=== PATIENT | female | born 1955 | race Caucasian/White ===

== ENCOUNTER → 2018-08-20 10:01 | Outpatient (CLI) | payer MEDICARE, MEDICAID, SELFPAY ==
--- NOTE | 2018-08-20 10:08 | MM_ITS ---
MM Dig screening mamm BI w/CAD CAD Screening COMPARISON: Digital mammograms with CAD 10/09/2016 and 01/31/2016 INDICATION: There is no personal or family history of breast cancer TECHNIQUE: Standard CC and MLO images were obtained. R2 CAD reviewed. FINDINGS: Moderate diffuse fiber glandular densities are seen in both breast again slightly more prominent right breast than left. There are scattered benign-appearing calcifications in each breast and there is minimal arterial calcification right breast. There is a mole marker left breast. There is no suspicious lesion and there are no suspicious microcalcifications. IMPRESSION: Moderate breast density with no suspicious lesion seen BI-RADS Category: 2 Benign Finding(s) RECOMMENDED FOLLOW-UP: 1YR - 1 YEAR FOLLOW-UP (A letter has been sent to the patient regarding results of the study.)
== END ==
PROVIDERS: PCP Internal Medicine Adolescent Medicine; Visit Provider Internal Medicine Adolescent Medicine
DX: Z12.31 Encounter for screening mammogram for malignant neoplasm of breast (principal)
CPT/HCPCS: 77067

== ENCOUNTER → 2019-04-22 12:19 | Outpatient (CLI) | payer MEDICARE, MEDICAID, SELFPAY ==
[2019-04-22 15:19] LABS: Anion Gap 12.5 mEq/L (5-15); Blood Urea Nitrogen 11 mg/dL (7-18); Calcium 9.4 mg/dL (8.5-10.1); Carbon Dioxide 27 mmol/L (21.0-32.0); Chloride 96 mmol/L (98-107); Creatinine,Serum 0.71 mg/dL (0.55-1.02); Estimated Glomerular Filt Rate 83 ml/min (>60); GFR (African American) 101 ML/MIN (>60); Glucose 189 mg/dL (74-106); Potassium 4.5 mmoL/L (3.5-5.1); Sodium 131 mmol/L (136-145)
== END ==
PROVIDERS: Visit Provider Physician Assistant
DX: I10 Essential (primary) hypertension (principal)
CPT/HCPCS: 36415; 80048

== ENCOUNTER → 2019-04-24 12:19 | Outpatient (CLI) | payer MEDICARE, MEDICAID, SELFPAY ==
--- NOTE | 2019-04-24 12:28 | XR_ITS ---
PROCEDURE: XR CHEST 2V CLINICAL HISTORY: abn cxr COMPARISON: CXR CHEST(2 VIEWS-NOT PORTABLE) from 09/11/2014 CXR CHEST(2 VIEWS-NOT PORTABLE) from 12/01/2014 CXR CHEST(2 VIEWS-NOT PORTABLE) from 01/02/2017 FINDINGS: The cardiomediastinal silhouette and pulmonary vascularity are within normal limits. No lobar consolidation or collapse is evident. There is a history of an abnormal chest x-ray at an outside institution. That exam is not available for review. No discrete nodules evident on today's exam. No change compared to multiple previous exams. We would be glad to comparison most recent outside film if it is made available. There is ankylosis of the thoracic spine. IMPRESSION: Negative chest, no discrete nodule apparent Dictated by: Jules Lynch MD 04/24/2019 13:38 Signed by: <Electronically signed by Julse Lynch MD in [place]> 04/24/2019 13:38
== END ==
PROVIDERS: PCP Internal Medicine Adolescent Medicine; Visit Provider Internal Medicine Adolescent Medicine
DX: R93.89 Abnormal findings on diagnostic imaging of other specified body structures (principal)
CPT/HCPCS: 71046

== ENCOUNTER → 2019-05-27 10:44 | Outpatient (CLI) | payer MEDICARE, MEDICAID, SELFPAY ==
--- NOTE | 2019-05-27 10:45 | CA_ITS ---
APPROVED REPORT EXAM: Comprehensive 2D, Doppler, and color-flow Echocardiogram Alligator Hunter: Ashley Tavares RT(R) Ht: 5 ft 5 in Wt: 170lbs BSA: 1.85 BP: 175/79 mmHg Indications: Shortness of Breath, Hyperlipidemia, Hypertension/HDD 2D Dimensions LVOT 1.90 cm (M/F) 1.5-2.5 M-Mode Dimensions RVDd 1.80 cm (0.9-2.6) LA Diam 4.00 cm (1.9-4.0) LVDd 4.40 cm (3.5-5.7) Ao Diam 2.30 cm (2.0-3.7) LVDs 2.80 cm (3.5-5.7) AV Cusp 1.50 cm (1.5-2.6) IVSd 0.70 cm (0.6-1.1) PWd 0.80 cm (0.6-1.1) EF (Teich) 66.20% FS 36.40% EDV (Teich) 87.70 mL ESV (Teich) 29.60 mL LV Diastology E/A Ratio 1.30 MED E' 7.70 (< 7 cm/sec) E'/MED E' Ratio 13.50 (>14) LAT E' 12.30 (<10 cm/sec) E/LAT E' Ratio 8.50 (>14) Mitral Valve MV E Max Fabrice. 104.00 (40-130 cm/s) MV A Velocity 80.50 (40-130 cm/s) E/A Ratio 1.30 Tricuspid Valve TR P. Velocity 265.00 cm/s RAP Estimate 15.00 mmHg RVSP 43.00 mmHg Left Ventricle Left atrium is mildly enlarged, left ventricle is normal size, there is no concentric left ventricular hypertrophy, visually estimated ejection fraction 55% with no regional wall motion abnormality. Right Ventricle Right atrium and right ventricle are mildly enlarged with normal contractility. Aortic Valve Aortic valve is minimally thickened and fibrosed. There is no aortic stenosis aortic insufficiency. Mitral Valve Mitral valve is grossly normal, there is mild mitral regurgitation. Tricuspid Valve Tricuspid valve is grossly normal, there is mild tricuspid regurgitation. Likely right ventricular systolic pressure is 42 mmHg consistent with moderately elevated right ventricular systolic pressure. Inferior vena cava is normal size with normal inspiratory collapse. Pulmonic Valve Pulmonic valve is poorly visualized. Great Vessels Aortic root is normal size. Pericardium No significant pericardial effusion noted. Conclusion 1. Mild biatrial enlargement, normal left ventricular size, visually estimated ejection fraction 55% with no regional wall motion abnormality, diastolic parameters are within normal range. 2. Mildly enlarged right ventricle with normal contractility. 3. Mild mitral and tricuspid regurgitation. Calculated right ventricular systolic pressure is 42 mmHg consistent with moderately elevated right ventricular systolic pressure, inferior vena cava is normal size with normal respiratory collapse. 4. No significant pericardial effusion noted. Electronically signed by : Elroy Ryder, 05/29/2019 13:34:11
== END ==
PROVIDERS: PCP Internal Medicine Adolescent Medicine; Visit Provider Internal Medicine Cardiovascular Disease
DX: F41.9 Anxiety disorder, unspecified (principal); I10 Essential (primary) hypertension; R06.09 Other forms of dyspnea
CPT/HCPCS: 93306

== ENCOUNTER → 2019-09-19 10:10 | Outpatient (CLI) | payer MEDICARE, OTHER, SELFPAY ==
[2019-09-19 10:42] LABS: Basophils % 0.4 % (0.1-2.0); Eosinophils # 0.2 K/mm3 (0.0-0.4); Eosinophils % 4.5 % (0.1-12.0); Hematocrit 37.7 % (37.0-47.0); Hemoglobin 12.3 g/dL (12.2-16.2); Lymphocytes % 40.5 % (10-50); Mean Corpuscular HGB Conc 32.6 g/dL (31.8-35.4); Mean Corpuscular Hemoglobin 29.9 pg (27.0-31.2); Mean Corpuscular Volume 91.7 fl (81-99); Mean Platelet Volume 7.5 fl (7.4-10.4); Monocytes # 0.3 K/mm3 (0.1-1.0); Monocytes % 5.8 % (1.7-9.3); Neutrophils # 2.4 K/mm3 (1.8-7.8); Neutrophils % 48.8 % (37.0-80.0); Platelet Count 411 K/mm3 (142-424); Red Blood Count 4.11 M/mm3 (4.20-5.40); Red Cell Distribution Width 12.7 % (11.5-17.5); White Blood Count 4.9 K/mm3 (4.8-10.8)
[2019-09-19 13:18] LABS: Hemoglobin A1C 7.3 % (0.0-7.0)
[2019-09-19 13:28] LABS: Alanine Aminotransferase 21 U/L (12-78); Albumin Level 3.5 gm/dL (3.4-5.0); Alkaline Phosphatase 96 U/L (46-116); Aspartate Amino Transferase 16 U/L (15-37); Bilirubin,Total 0.3 mg/dL (0.2-1.0); Blood Urea Nitrogen 15 mg/dL (7-18); Calcium 8.6 mg/dL (8.5-10.1); Carbon Dioxide 28 mmol/L (21.0-32.0); Chloride 104 mmol/L (98-107); Chol/HDL Ratio 3.6 (1-3.5); Cholesterol 218 mg/dL (140-200); Estimated Glomerular Filt Rate 73 ml/min (>60); GFR (African American) 88 ML/MIN (>60); Globulin 3.6 gm/dl (1.3-3.2); Glucose 154 mg/dL (74-106); HDL Cholesterol 60 mg/dL (29-89); LDL Cholesterol 133 mg/dL (0-130); Sodium 139 mmol/L (136-145); Total Protein,Serum 7.1 gm/dL (6.4-8.2); Triglycerides 127 mg/dL (30-200); VLDL Cholesterol 25 mg/dL (0-40)
[2019-09-23 10:45] LABS: Vitamin D 25 Hydroxy 28.8 ng/mL (30.0-100.0)
== END ==
PROVIDERS: Visit Provider Internal Medicine Adolescent Medicine
DX: E11.9 Type 2 diabetes mellitus without complications (principal); E55.9 Vitamin D deficiency, unspecified; E78.5 Hyperlipidemia, unspecified; Z79.84 Long term (current) use of oral hypoglycemic drugs
CPT/HCPCS: 36415; 80053; 80061; 82652; 83036; 85025

== ENCOUNTER → 2020-02-02 09:57 | Outpatient (CLI) | payer MEDICARE, OTHER, SELFPAY ==
[2020-02-02 10:56] LABS: Basophils % 0.5 % (0.1-2.0); Eosinophils # 0.2 K/mm3 (0.0-0.4); Eosinophils % 4.4 % (0.1-12.0); Hematocrit 39.9 % (37.0-47.0); Hemoglobin 12.9 g/dL (12.2-16.2); Lymphocytes # 2.4 K/mm3 (0.7-4.5); Lymphocytes % 46.1 % (10-50); Mean Corpuscular HGB Conc 32.4 g/dL (31.8-35.4); Mean Corpuscular Hemoglobin 29.8 pg (27.0-31.2); Mean Corpuscular Volume 92.1 fl (81-99); Mean Platelet Volume 7.4 fl (7.4-10.4); Monocytes # 0.3 K/mm3 (0.1-1.0); Monocytes % 4.9 % (1.7-9.3); Neutrophils # 2.3 K/mm3 (1.8-7.8); Neutrophils % 44.1 % (37.0-80.0); Platelet Count 410 K/mm3 (142-424); Red Blood Count 4.34 M/mm3 (4.20-5.40); Red Cell Distribution Width 13.2 % (11.5-17.5); White Blood Count 5.2 K/mm3 (4.8-10.8)
[2020-02-02 11:33] LABS: Alanine Aminotransferase 24 U/L (12-78); Albumin Level 4.2 g/dl (3.5-5.0); Albumin/Globulin Ratio 1.2 (1.1-1.8); Alkaline Phosphatase 106 U/L (38-126); Anion Gap 11.4 mEq/L (5-15); Aspartate Amino Transferase 27 U/L (14-36); Bilirubin,Total 0.4 mg/dl (0.2-1.3); Blood Urea Nitrogen 8 mg/dl (7-17); Calcium 9.7 mg/dl (8.4-10.2); Carbon Dioxide 30 mmol/L (22.0-30.0); Chloride 99 mmol/L (98-107); Chol/HDL Ratio 3.1 (1-3.5); Cholesterol 216 mg/dl (140-200); Estimated Glomerular Filt Rate 85 ml/min (>60); GFR (African American) 103 ML/MIN (>60); Globulin 3.4 g/dL (1.3-3.2); Glucose 174 mg/dl (74-100); HDL Cholesterol 69 mg/dl (40-60); Potassium 4.4 mmoL/L (3.5-5.1); Sodium 136 mmol/L (136-145); Total Protein,Serum 7.6 g/dl (6.3-8.2); Triglycerides 138 mg/dl (30-150); VLDL Cholesterol 28 mg/dL (0-40)
[2020-02-02 11:43] LABS: Hemoglobin A1C 7.8 % (4.0-6.0)
[2020-02-02 11:44] LABS: Direct LDL Cholesterol 148.23 mg/dL (100-129)
[2020-02-03 09:41] LABS: Vitamin D 25 Hydroxy 31.8 ng/mL (30.0-100.0)
== END ==
PROVIDERS: Visit Provider Internal Medicine Adolescent Medicine
DX: E78.5 Hyperlipidemia, unspecified (principal); E11.9 Type 2 diabetes mellitus without complications; E55.9 Vitamin D deficiency, unspecified
CPT/HCPCS: 36415; 80053; 80061; 82652; 83036; 85025

== ENCOUNTER → 2020-12-17 11:53 | Outpatient (CLI) | payer MEDICARE, SELFPAY ==
[2020-12-17 12:21] LABS: Adenovirus,PCR Not Detected (NotDetected); Bordetella Pertussis Not Detected (NotDetected); Chlamydophila Pneumoniae, PCR Not Detected (NotDetected); Coronavirus 19, PCR Not Detected (NotDetected); Coronavirus 229E Not Detected (NotDetected); Coronavirus NL63 Not Detected (NotDetected); Coronavirus OC43 Not Detected (NotDetected); Coronovirus HKU1,PCR Not Detected (NotDetected); Human Metapneumovirus Not Detected (NotDetected); Influenza A, PCR Not Detected (NotDetected); Influenza AH1, 2009 Not Detected (NotDetected); Influenza AH1, PCR Not Detected (NotDetected); Influenza AH3,PCR Not Detected (NotDetected); Influenza B, PCR Not Detected (NotDetected); Mycoplasma Pneumoniae, PCR Not Detected (NotDetected); Parainfluenza 1, PCR Not Detected (NotDetected); Parainfluenza 2, PCR Not Detected (NotDetected); Parainfluenza 3, PCR Not Detected (NotDetected); Parainfluenza 4, PCR Not Detected (NotDetected); Respiratory Syncytial Virus Not Detected (NotDetected)
[2020-12-17 17:00] LABS: Rhinovirus/Enterovirus Detected (NotDetected)
== END ==
PROVIDERS: PCP Internal Medicine Adolescent Medicine; Visit Provider Internal Medicine Adolescent Medicine
DX: Z20.822 Contact with and (suspected) exposure to COVID-19 (principal); J06.9 Acute upper respiratory infection, unspecified; A08.11 Acute gastroenteropathy due to Norwalk agent
CPT/HCPCS: 87581; 87633; 87798

== ENCOUNTER → 2021-01-20 08:18 | Outpatient (CLI) | payer MEDICARE, OTHER, SELFPAY ==
--- NOTE | 2021-01-20 08:23 | MM_ITS ---
PROCEDURE INFORMATION: Exam: MG Screening 3D Mammography Exam date and time: 01/20/2021 8:23 AM Age: 65 years old Clinical indication: Encounter for screening mammogram for malignant neoplasm of breast TECHNIQUE: Imaging protocol: Screening tomosynthesis and 2D mammography including computer-aided detection (CAD) when performed. COMPARISON: 1. MG SCBI MM Dig screening mamm BI w/CAD 08/20/2018 10:13 AM 2. MG DMDBAV DIG MAMM-DX VENKATESH W/AVWS W/CAD 10/09/2016 1:07 PM 3. MG DMDBAV DIG MAMM-DX VENKATESH W ADD VIEWS 02/20/2016 2:35 PM 4. MG DMSB DIG MAMM-SCREEN VENKATESH 01/31/2016 10:09 AM FINDINGS: MAMMOGRAPHY: Breast composition: The breasts are heterogeneously dense, which may obscure small masses. Mass: No new suspicious masses. Architectural distortion: No suspicious distortion. Calcifications: No suspicious calcifications. Asymmetric density: None. Skin thickening: None. Axillary adenopathy: None. IMPRESSION: No mammographic evidence of malignancy. Annual screening is recommended unless otherwise clinically indicated. ASSESSMENT: BI-RADS Category 1: Negative
== END ==
PROVIDERS: PCP Internal Medicine Adolescent Medicine; Visit Provider Internal Medicine Adolescent Medicine
DX: Z12.31 Encounter for screening mammogram for malignant neoplasm of breast (principal)
CPT/HCPCS: 77063; 77067

== ENCOUNTER → 2021-08-12 12:03 | Outpatient (CLI) | payer MEDICARE, OTHER, SELFPAY ==
[2021-08-12 12:54] LABS: Basophils % 0.4 % (0.1-2.0); Eosinophils # 0.2 K/mm3 (0.0-0.4); Eosinophils % 4.3 % (0.1-12.0); Hematocrit 37.9 % (37.0-47.0); Hemoglobin 12.9 g/dL (12.2-16.2); Lymphocytes # 2.3 K/mm3 (0.7-4.5); Lymphocytes % 42.6 % (10-50); Mean Corpuscular Hemoglobin 30.6 pg (27.0-31.2); Mean Corpuscular Volume 89.8 fl (81-99); Mean Platelet Volume 8.6 fl (7.4-10.4); Monocytes # 0.3 K/mm3 (0.1-1.0); Monocytes % 5.1 % (1.7-9.3); Neutrophils # 2.6 K/mm3 (1.8-7.8); Neutrophils % 47.6 % (37.0-80.0); Platelet Count 391 K/mm3 (142-424); Red Blood Count 4.22 M/mm3 (4.20-5.40); Red Cell Distribution Width 12.9 % (11.5-17.5); White Blood Count 5.5 K/mm3 (4.8-10.8)
[2021-08-12 14:34] LABS: Alanine Aminotransferase 25 U/L (12-78); Albumin Level 4.2 g/dl (3.5-5.0); Albumin/Globulin Ratio 1.4 (1.1-1.8); Alkaline Phosphatase 102 U/L (38-126); Anion Gap 12.6 mEq/L (5-15); Aspartate Amino Transferase 30 U/L (14-36); Bilirubin,Total 0.5 mg/dl (0.2-1.3); Blood Urea Nitrogen 12 mg/dl (7-17); Calcium 9.4 mg/dl (8.4-10.2); Carbon Dioxide 29 mmol/L (22.0-30.0); Chloride 99 mmol/L (98-107); Chol/HDL Ratio 2.7 (1-3.5); Cholesterol 182 mg/dl (140-200); Estimated Glomerular Filt Rate 101 ml/min (>60); GFR (African American) 122 ML/MIN (>60); Globulin 3.1 g/dL (1.3-3.2); Glucose 164 mg/dl (74-100); HDL Cholesterol 67 mg/dl (40-60); Potassium 4.6 mmoL/L (3.5-5.1); Sodium 136 mmol/L (136-145); Total Protein,Serum 7.3 g/dl (6.3-8.2); Triglycerides 102 mg/dl (30-150); VLDL Cholesterol 20 mg/dL (0-40)
[2021-08-12 14:44] LABS: Direct LDL Cholesterol 101.41 mg/dL (100-129)
[2021-08-12 14:50] LABS: 25-OH Vitamin D, Total 40.8 ng/mL (30-100)
[2021-08-12 15:25] LABS: Vitamin B12 346 pg/mL (239-931)
[2021-08-12 15:33] LABS: Hemoglobin A1C 8.1 % (4.0-6.0)
== END ==
PROVIDERS: Visit Provider Internal Medicine Adolescent Medicine
DX: E78.5 Hyperlipidemia, unspecified (principal); E11.9 Type 2 diabetes mellitus without complications; R53.81 Other malaise; E66.3 Overweight; Z68.27 Body mass index [BMI] 27.0-27.9, adult
CPT/HCPCS: 36415; 80053; 80061; 82306; 82607; 83036; 85025

== ENCOUNTER 2022-02-03 16:07 | Emergency (ER) | payer MEDICARE, OTHER, SELFPAY ==
[2022-02-03 17:00] VITALS: BP 141/76; PULSE 86; RESP 19; TEMP 37.8; O2SAT 98; BMI 29.1
--- NOTE | 2022-02-03 17:14 | HMH.EDUTC ---
[facility] [place] Impression: Viral upper respiratory illness Disposition: Home, Self-Care Condition on Discharge: Good Instructions: DI for Fever (Symptom) -- Adult, DI for Viral Syndrome, DI for COVID-19 (Suspected or Confirmed ) Additional Instructions: *Monitor Temp, Over the counter Motrin or Tylenol as directed/as needed Tylenol every 4 hours and Motrin every 6 hours (as long as your family doctor has told you that you can take it) for fever or pain. and straight to ER if unable to lower temp less than 101.0 after medication given *Warm salt water gargles may help to soothe the throat *Throat Lozenges *Warm fluids like tea with honey may help to soothe the throat *Sleep elevated *Humidifier/Vaporizer Follow up IMMEDIATELY for new or worsening symptoms or no Noticeable improvement over the next 48-72 hours. 911 for difficulty breathing or swallowing You were tested for today for COVID19 your test result should be back in the next 24-48 hours, your results will be available on the [facility] portal you can view your results there Make sure to take your Vitamins Vit. C Vit D and Zinc if you can take them Referrals: Nathan Perez MD [Primary Care Provider] - As needed Time of Disposition: 17:32 Medical Decision Making - Juan Carlos Inquiry Pt receiving controlled substance: No Juan Carlos was queried for this patient: No Vital Signs: 02/03/22 17:00 Temperature 100.1 F H Temperature Source Oral Pulse Rate [Right Brachial] 86 Respiratory Rate 19 Blood Pressure [Right Arm] 141/76 H Blood Pressure Mean [Right Arm] 97 Blood Pressure Source [Right Arm] Automatic Cuff Blood Pressure Position [Right Arm] Sitting 02 Sat by Pulse Oximetry 98 Oxygen Delivery Method Room Air Orders (Tests/Meds): ORDERS Category Date Time Status Full Resp Panel w/COVID ([facility]) Routine Lab 02/03/22 16:54 [place] [facility] [place] - General Stated complaint: sore throat,fever,body aches Time Seen by Provider: 02/03/22 17:14 Mode of Arrival: Ambulatory Source of Information: Patient Limitations: No Limitations Description of Symptoms (Recalled from Triage Doc. by RN): PATIENT C/O RUNNY NOSE, BODY ACHES, FEVER AND DRY COUGH X 3 DAYS HEENT Symptoms (Recalled from RN notes): Yes Resp Symptoms (Recalled from RN notes): Yes Skin Symptoms (Recalled from RN notes): No MS Symptoms (Recalled from RN notes): No Functional Status (Recalled from RN notes): WNL - History of Present Illness Provider Complaint: Patient states that she has been having bodyaches, chills, low grade fever and nasal congestion for about 3 days State that grandchild was recenty sick with similar symptoms States that she was worried that it may be COVID and wanted to come in and get tested - Related Data Home Medications Medication Instructions Recorded Confirmed brimonidine 0.2 %-timolol 0.5 % 1 drp OPHTHALMIC BID 09/16/18 02/16/21 eye drops aspirin 81 mg tablet,delayed 81 mg PO DAILY 04/16/19 02/16/21 release buspirone 10 mg tablet 5 mg PO BID 90 Days #90 tab 04/16/19 02/16/21 famotidine 20 mg tablet 20 mg PO BID 04/16/19 02/16/21 metformin 1,000 mg tablet 1,500 mg PO DAILY tab 02/18/20 02/16/21 dapagliflozin 10 mg tablet 10 mg PO DAILY tab 02/16/21 02/16/21 rosuvastatin 20 mg tablet 20 mg PO DAILY tab 02/16/21 02/16/21 Previous Rx's Medication Instructions Recorded lisinopril 20 mg tablet 20 mg PO DAILY #30 tab 07/16/19 propranolol 60 mg capsule,24 See Rx Instructions .ROUTE 05/02/21 hr,extended release .COMPLEX #90 cap furosemide 20 mg tablet See Rx Instructions .ROUTE 11/30/21 .COMPLEX #30 tab Allergies Allergy/AdvReac Type Severity Reaction Status Date / Time codeine [CODEINE] Allergy Unknown Verified 02/16/21 11:10 Iodinated Contrast Media Allergy Unknown Verified 02/16/21 11:10 [IODINATED CONTRAST MEDIA - ORAL AND] Penicillins [PENICILLINS] Allergy Unknown Verified 02/16/21 11:10 shellfish derived Allergy Un
[2022-02-03 17:17] LABS: Adenovirus,PCR Not Detected (NotDetected); Bordetella Pertussis Not Detected (NotDetected); Chlamydophila Pneumoniae, PCR Not Detected (NotDetected); Coronavirus 19, PCR Not Detected (NotDetected); Coronavirus 229E Not Detected (NotDetected); Coronavirus NL63 Not Detected (NotDetected); Coronavirus OC43 Not Detected (NotDetected); Coronovirus HKU1,PCR Not Detected (NotDetected); Human Metapneumovirus Not Detected (NotDetected); Influenza A, PCR Not Detected (NotDetected); Influenza AH1, 2009 Not Detected (NotDetected); Influenza AH1, PCR Not Detected (NotDetected); Influenza AH3,PCR Not Detected (NotDetected); Influenza B, PCR Not Detected (NotDetected); Mycoplasma Pneumoniae, PCR Not Detected (NotDetected); Parainfluenza 1, PCR Not Detected (NotDetected); Parainfluenza 2, PCR Not Detected (NotDetected); Parainfluenza 3, PCR Not Detected (NotDetected); Parainfluenza 4, PCR Not Detected (NotDetected); Respiratory Syncytial Virus Not Detected (NotDetected)
[2022-02-03 17:41] VITALS: BP 141/73; PULSE 86; RESP 19; TEMP 37.8; O2SAT 98
[2022-02-03 21:49] LABS: Rhinovirus/Enterovirus Detected (NotDetected)
== END 2022-02-03 17:47 | disposition home or self-care (01) ==
PROVIDERS: Emergency Provider Nurse Practitioner; PCP Internal Medicine Adolescent Medicine
DX: B34.8 Other viral infections of unspecified site (principal); J02.9 Acute pharyngitis, unspecified; M79.10 Myalgia, unspecified site; R50.9 Fever, unspecified; E78.5 Hyperlipidemia, unspecified; Z20.822 Contact with and (suspected) exposure to COVID-19; I10 Essential (primary) hypertension; E11.9 Type 2 diabetes mellitus without complications; F32.A Depression, unspecified; Z79.82 Long term (current) use of aspirin; Z79.84 Long term (current) use of oral hypoglycemic drugs; Z79.899 Other long term (current) drug therapy; Z88.0 Allergy status to penicillin; Z88.2 Allergy status to sulfonamides; Z88.5 Allergy status to narcotic agent; Z91.041 Radiographic dye allergy status; Z91.013 Allergy to seafood
CPT/HCPCS: 87581; 87632; 87798; 99213; C9803; G0463; U0003; U0005

== ENCOUNTER 2022-04-08 17:49 | Emergency (ER) | payer MEDICARE, OTHER, SELFPAY ==
[2022-04-08 18:21] VITALS: BP 140/85; PULSE 74; RESP 16; TEMP 37; O2SAT 100; BMI 28.3
[2022-04-08 18:31] VITALS: BP 140/85; PULSE 74; RESP 16; TEMP 37
== END 2022-04-08 18:32 | disposition home or self-care (01) ==
PROVIDERS: Emergency Provider Nurse Practitioner; PCP Internal Medicine Adolescent Medicine
DX: Z23 Encounter for immunization (principal)
CPT/HCPCS: 90471

== ENCOUNTER 2022-04-30 18:07 | Emergency (ER) | payer MEDICARE, OTHER, SELFPAY ==
[2022-04-30 19:47] VITALS: BP 158/75; PULSE 75; RESP 16; TEMP 37.6; O2SAT 99; BMI 28.3
[2022-04-30 20:02] LABS: UTC Strep Screen (Rapid) Negative (Negative)
--- NOTE | 2022-04-30 20:05 | EXP.UTC ---
Discharge Plan Disposition Patient Disposition: Home, Self-Care Condition: Good Prescriptions Prescriptions: New benzonatate [benzonatate] 100 mg capsule 100 mg PO TIDP PRN (Reason: Cough) Qty: 30 0RF ondansetron 4 mg Tablet,Disintegrating 4 mg PO Q8H PRN (Reason: Nausea) Qty: 20 0RF No Action buspirone 10 mg tablet 5 mg PO BID 90 Days Qty: 90 metformin 1,000 mg tablet 1,000 mg PO DAILY dorzolamide 2 % drops 1 drp OP famotidine [Pepcid] 20 mg tablet 20 mg PO BID aspirin [Adult Low Dose Aspirin] 81 mg tablet,delayed release (DR/EC) 81 mg PO DAILY lisinopril 20 mg tablet 20 mg PO DAILY Qty: 30 6RF furosemide 20 mg tablet See Rx Instructions .ROUTE .COMPLEX Qty: 30 5RF Dose Instruction: Take 1 tablet by mouth once daily Rx Instructions: Take 1 tablet by mouth once daily propranolol 60 mg capsule,extended release 24 hr See Rx Instructions .ROUTE .COMPLEX Qty: 90 2RF Dose Instruction: Take 1 capsule by mouth once daily Rx Instructions: Take 1 capsule by mouth once daily Referrals Follow up/Referrals: Nathan Perez MD [Primary Care Provider] - See instructions Activity Restrictions/Add. Instructions Additional Instructions/Restrictions: Drink plenty of fluids. Take tylenol or ibuprofen for pain or fever. Take the medications as directed. Follow up with your regular doctor. GO TO THE ER FOR ANY WORSENING SYMPTOMS Quarantine until you know the results of your covid-19 test. Notify your school or workplace of your results and follow their instructions regarding return to work/school. Clinical Impressions Clinical Impression: Acute viral syndrome, Close exposure to COVID-19 virus Stand Alone Forms Stand Alone Forms: Work/School Release Instructions Patient Instructions: Coronavirus Disease 2019, Preventing the Spread of Coronavirus Discharge Instructions Discharge ED Provider: Leonardo Sewell [facility] General Stated complaint: covid test, exposed body aches chills Mode of Arrival: Ambulatory Source of Information: Patient Limitations: No Limitations Time Seen by Provider: 04/30/22 20:05 Description of Symptoms (Recalled from Triage Doc. by RN): pt comes in with complaints of chills and body aches. pt was exposed to covid by graddaughter and daughter. and was also exposed to strep throat by another granddaughter. pt states that her symptoms began today HEENT Symptoms (Recalled from RN notes): No Resp Symptoms (Recalled from RN notes): No Skin Symptoms (Recalled from RN notes): No MS Symptoms (Recalled from RN notes): No Functional Status (Recalled from RN notes): n/a History of Present Illness Provider Complaint: She has felt bad since yesterday. She has body aches, chills, low grade fever. Related Data Home Medications Medication Instructions Recorded Confirmed aspirin 81 mg tablet,delayed 81 mg PO DAILY 04/16/19 03/08/22 release (Adult Low Dose Aspirin) buspirone 10 mg tablet 5 mg PO BID 90 days #90 tabs 04/16/19 03/08/22 famotidine 20 mg tablet (Pepcid) 20 mg PO BID 04/16/19 03/08/22 dorzolamide 2 % eye drops 1 drp ophthalmic (eye) 03/08/22 03/08/22 metformin 1,000 mg tablet 1,000 mg PO DAILY 03/08/22 03/08/22 Previous Rx's Medication Instructions Recorded lisinopril 20 mg tablet 20 mg PO DAILY #30 tabs 07/16/19 furosemide 20 mg tablet See Rx Instructions .Route 11/30/21 .COMPLEX #30 tabs propranolol 60 mg capsule,24 See Rx Instructions .Route 02/13/22 hr,extended release .COMPLEX #90 caps benzonatate 100 mg capsule 100 mg PO TIDP PRN Cough #30 caps 04/30/22 ondansetron 4 mg disintegrating 4 mg PO Q8H PRN Nausea #20 tabs 04/30/22 tablet Allergies Allergy/AdvReac Type Severity Reaction Status Date / Time codeine [CODEINE] Allergy Unknown Verified 04/30/22 19:50 Iodinated Contrast Media Allergy Unknown Verified 04/30/22 19:50 [IODINATED CONTRAST MEDIA - ORAL AND] Pen
[2022-04-30 20:27] VITALS: BP 158/75; PULSE 75; RESP 16; TEMP 37.6
== END 2022-04-30 20:28 | disposition home or self-care (01) ==
PROVIDERS: Emergency Provider Nurse Practitioner Family; PCP Internal Medicine Adolescent Medicine
DX: U07.1 COVID-19 (principal)
CPT/HCPCS: 87880; 99212; C9803; G0463; U0003; U0005

== ENCOUNTER 2023-11-06 15:12 | Outpatient (CLI) | payer MEDICARE, OTHER, SELFPAY ==
--- NOTE | 2023-11-06 15:13 | CA_ITS ---
APPROVED REPORT EXAM: Comprehensive 2D, Doppler, and color-flow Echocardiogram Security Agent: Ashley Tavares RT(R) Ht: 5 ft 5 in Wt: 173lbs BSA: 1.86 BP: 136/64 mmHg Indications: HTN, PHTN, DM 2D Dimensions LVEF (Hendrix's) 62.90 % F: 54 - 74 LV Volume 75.00 mL F: 46 - 106 LV Volume Index 40.3 mL/m2 F: 29 - 61 LA Volume 38.90 mL LA Volume Index 20.91 mL/m2 (M/F) 16-34 EF AP4 57.90 % EF AP2 67.5 % EF BP 62.9 % GL Strain -15.2 % M-Mode Dimensions RVDd 2.55 cm (0.9-2.6) LA Diam 3.41 cm (1.9-4.0) LVDd 4.06 cm (3.5-5.7) LVDs 2.99 cm (3.5-5.7) IVSd 0.84 cm (0.6-1.1) PWd 0.89 cm (0.6-1.1) EF (Teich) 52.10% FS 26.40% EDV (Teich) 72.50 mL ESV (Teich) 34.70 mL LV Diastology E Decel Time 217 (160-240 msec) E/A Ratio 1.4 Mitral Valve MV E Max Fabrice. 95.0 (40-130 cm/s) MV A Velocity 68.0 (40-130 cm/s) E/A Ratio 1.39 MV PHT 63.0 ms Tricuspid Valve TR P. Velocity 274.00 cm/s RAP Estimate 10.00 mmHg RVSP 40.00 mmHg Left Ventricle The left ventricle is normal size. The left ventricular systolic function is normal. The left ventricular ejection fraction is within the normal range. Proximal septal thickening is noted. There is normal LV segmental wall motion. The left ventricular diastolic function is normal. LVEF is 60%. Right Ventricle The right ventricle is normal size. The right ventricular systolic function is normal. Atria The left atrium size is normal. The right atrium size is normal. There is no Doppler evidence of interatrial shunt. Aortic Valve The aortic valve is mildly thickened. There is no aortic valvular stenosis. No aortic regurgitation is present. Mitral Valve The mitral valve is normal in structure. No evidence of mitral valve stenosis. Mild mitral regurgitation. Tricuspid Valve The tricuspid valve leaflets are thin and pliable. Mild tricuspid regurgitation. RVSP is 25-30 mmHg. Pulmonic Valve The pulmonary valve is normal in structure. Trace pulmonic regurgitation. Great Vessels The aortic root is normal in size. The ascending aorta is normal in size. IVC is normal in size and collapses >50% with inspiration. Pericardium There is no pericardial effusion. Other Information Study Quality: Fair Conclusion Normal biventricular systolic function. Mild TR, mild MR. RVSP 25-30 mmHg. Electronically signed by : Hanh Cornelius MD 11/09/2023 22:14:07
== END 2023-11-06 23:59 ==
LOC: RT 15:13
PROVIDERS: PCP Internal Medicine Adolescent Medicine; Visit Provider Internal Medicine
DX: I27.20 Pulmonary hypertension, unspecified (principal); I10 Essential (primary) hypertension; E11.9 Type 2 diabetes mellitus without complications; R60.0 Localized edema; Z79.84 Long term (current) use of oral hypoglycemic drugs
CPT/HCPCS: 93306

== ENCOUNTER 2023-12-04 09:44 | Outpatient (CLI) | payer MEDICARE, OTHER, SELFPAY | END 2023-12-04 23:59 | LOC: LAB.DROPOF 12-05 09:45 | PROVIDERS: PCP Nurse Practitioner Family; Visit Provider Nurse Practitioner Family | DX: Z20.818 Contact with and (suspected) exposure to other bacterial communicable diseases (principal) | CPT/HCPCS: 87070 ==

== ENCOUNTER 2024-05-01 09:48 | Outpatient (CLI) | payer MEDICARE, OTHER, SELFPAY ==
[2024-05-01 18:16] LABS: Adenovirus,PCR Not Detected (NotDetected); Bordetella Pertussis Not Detected (NotDetected); Chlamydophila Pneumoniae, PCR Not Detected (NotDetected); Coronavirus 229E Not Detected (NotDetected); Coronavirus NL63 Not Detected (NotDetected); Coronavirus OC43 Not Detected (NotDetected); Coronovirus HKU1,PCR Not Detected (NotDetected); Human Metapneumovirus Not Detected (NotDetected); Influenza A, PCR Not Detected (NotDetected); Influenza AH1, 2009 Not Detected (NotDetected); Influenza AH1, PCR Not Detected (NotDetected); Influenza AH3,PCR Not Detected (NotDetected); Influenza B, PCR Not Detected (NotDetected); Mycoplasma Pneumoniae, PCR Not Detected (NotDetected); Parainfluenza 1, PCR Not Detected (NotDetected); Parainfluenza 2, PCR Not Detected (NotDetected); Parainfluenza 3, PCR Not Detected (NotDetected); Parainfluenza 4, PCR Not Detected (NotDetected); Respiratory Syncytial Virus Not Detected (NotDetected); Rhinovirus/Enterovirus Not Detected (NotDetected)
[2024-05-04 18:17] LABS: Coronavirus 19, PCR Detected (NotDetected)
== END 2024-05-01 23:59 | disposition home or self-care (01) ==
LOC: LAB.DROPOF 05-04 09:48
PROVIDERS: PCP Nurse Practitioner Family; Visit Provider Nurse Practitioner Family
DX: Z20.822 Contact with and (suspected) exposure to COVID-19 (principal); J20.8 Acute bronchitis due to other specified organisms; B96.89 Other specified bacterial agents as the cause of diseases classified elsewhere
CPT/HCPCS: 87265; 87486; 87581; 87632; 87635

== ENCOUNTER 2024-11-01 12:31 | Outpatient (CLI) | payer MEDICARE, OTHER, SELFPAY | END 2024-11-01 23:59 | disposition home or self-care (01) | LOC: LAB.DROPOF 11-02 16:38 | PROVIDERS: PCP Student in an Organized Health Care Education/Training Program; Visit Provider Student in an Organized Health Care Education/Training Program | DX: R05.9 Cough, unspecified (principal); R06.2 Wheezing; R50.9 Fever, unspecified; R52 Pain, unspecified | CPT/HCPCS: 87635 ==

== ENCOUNTER 2025-03-30 21:50 | Emergency (ER) | payer MEDICARE, OTHER, SELFPAY ==
--- OUTSIDE RECORDS SUMMARY | 2025-03-30 21:58 | XMS_ITS | Clinical Summary ---
Author Organization Healthcare Address [address] [place] [address] Care Team Providers Care Gameroom Technician Name Role Phone Unavailable Primary Care Provider Unavailabl e Family History Medical History Relation Name Comments Heart disease Brother 1 Hypertension Brother 2 Stroke Brother 3 Heart disease Father Cancer Mother Relation Name Status Comments Brother 1 Brother 2 Brother 3 Father Mother Social History Tobacco Use Types Packs/Day Years Used Date Smoking Tobacco: Never Alcohol Use Standard Drinks/Week Comments Yes 0 (1 standard drink = 0.6 oz pur e alcohol) Alcoholic Drinks/day: Alcohol Comments Unknown Sex and Gender Information Value Date Recorded Sex Assigned at Not on file Legal Sex Female 8:56 PM EDT Gender Identity Not on file Sexual Orientation Not on file Last Filed Vital Signs Vital Sign Reading Time Taken Comments Blood Pressure - - Pulse - - Temperature - - Respiratory Rate - - Oxygen Saturation - - Inhaled Oxygen Concentration - - Weight 80 kg (176 lb 5.9 oz) 03/16/2016 1:05 PM EDT Height 165.1 cm (5' 5 ) 03/16/2016 1:05 PM EDT Body Mass Index 29.35 03/16/2016 1:05 PM EDT Plan of Treatment Not on file
--- OUTSIDE RECORDS SUMMARY | 2025-03-30 21:58 | XMS_ITS | Clinical Summary ---
Author Organization [facility] Address [address] [place] [address] Care Team Providers Care Plastic Shaper Name Role Phone Unavailable Primary Care Provider Unavailabl e Medications levothyroxine (SYNTHROID, LEVOTHROID) 25 MCG tablet Take 1 tablet (25 mcg total) by mouth daily. 90 tablet 1 10/11/2015 Active rosuvastatin (CRESTOR) 20 MG tablet Take 1 tablet (20 mg total) by mouth daily. 90 tablet 1 10/11/2015 Active Social History Tobacco Use Types Packs/Day Years Used Date Smoking Tobacco: Never Assessed Abuse Screen Answer Date Recorded Unsafe at Home or Work/School Not on file Feels Threatened by Someone? Not on file 06/2023 Does Anyone Keep You from Co ntacting Others or Doint Things Outside the Home? Not on file 06/05/2023 Physical Sign of Abuse Present Not on file 1 Housing Stability Answer Date Recorded Current Living Arrangements Not on file 05/26 Potentially Unsafe Housing Conditions Not on bharati e 06/05/2023 Family and Community Support Answer Amaury e Recorded Help with Day-to-Day Activities Not on file 06/05/2023 Lonely or Isolated Not on file 06/05/2023 Employment Answer Date Recorded Do you want help finding or keeping work or a nichole b? Not on file 06/05/2023 Disabilities Answer Date Recorded Concentrating, Remembering, or Making Decisions Difficulty Not on file 06/05/2023 Doing Errands Independently Difficulty Not on fi le 06/05/2023 Education Answer Date Recorded Help with school or training? Not on file Preferred Language Not on file 06/05/2023 Comments Unknown Sex and Gender Information Value Date Recorded Sex Assigned at Not on file Legal Sex Female 12:14 PM EDT Gender Identity Not on file Sexual Orientation Not on file Plan of Treatment Health Maintenance Due Date Last Done Comments DXA SCAN 1957 TDAP/TD VACCINES (1 - Tdap) 1976 MAMMOGRAM 1997 COLOGUARD 2002 COLON CANCER SCREENING 5 YEAR SIGMOIDOSCOPY 2002 COLONOSCOPY 2002 [address] CANCER SCREENING 2002 CT COLONOGRAPHY 2002 FECAL OCCULT BLOOD TEST 2002 FIT Testing (1 year) 2002 Pneumococcal Vaccine 50+ (1 of 1 - PCV) 2007 ZOSTER VACCINE (1 of 2) 2007 ANNUAL PHYSICAL 10/03/2015 HEPATITIS C SCREENING 10/03/2015 COVID-19 Vaccine ( season) 2024 INFLUENZA VACCINE 05/26/2025
[2025-03-30 22:01] VITALS: BP 196/95; PULSE 82; RESP 16; TEMP 37; O2SAT 98; BMI 29.2
--- NOTE | 2025-03-30 22:05 | CT_ITS ---
PROCEDURE INFORMATION: Exam: CT Head Without Contrast Exam date and time: 03/30/2025 10:22 PM Age: 70 years old Clinical indication: Injury or trauma; Fall; Additional info: Ground level fall with facial hematoma on asa TECHNIQUE: Imaging protocol: Computed tomography of the head without contrast. Radiation optimization: All CT scans at this facility use at least one of these dose optimization techniques: automated exposure control; mA and/or kV adjustment per patient size (includes targeted exams where dose is matched to clinical indication); or iterative reconstruction. COMPARISON: CT HEAD/BRAIN WO CON 03/30/2025 10:22 PM FINDINGS: Brain: There is age related atrophy. No hemorrhage. There is mild periventricular white matter hypodensity consistent with chronic small vessel disease. No mass effect. Cerebral ventricles: No ventriculomegaly. Paranasal sinuses: Visualized sinuses are unremarkable. No fluid levels. Mastoid air cells: Visualized mastoid air cells are well aerated. Orbital cavities: The orbital contents are symmetric and normal. Bones: Unremarkable. No acute fracture. Soft tissues: Subcutaneous hematoma superolateral right periorbital region. IMPRESSION: 1. No acute intracranial abnormality. 2. Subcutaneous hematoma superolateral right periorbital region.
--- NOTE | 2025-03-30 22:05 | XR_ITS ---
PROCEDURE INFORMATION: Exam: XR Left Wrist Exam date and time: 03/30/2025 10:28 PM Age: 70 years old Clinical indication: Pain; Wrist; Left; Additional info: Ground level fall TECHNIQUE: Imaging protocol: Radiologic exam of the left wrist. Views: 3 or more views. COMPARISON: CR XR FOREARM LT 2V 03/30/2025 10:28 PM FINDINGS: Bones/joints: No fracture. Normal alignment. Soft tissues: Unremarkable. IMPRESSION: No acute findings.
--- NOTE | 2025-03-30 22:05 | XR_ITS ---
PROCEDURE INFORMATION: Exam: XR Left Hand Exam date and time: 03/30/2025 10:28 PM Age: 70 years old Clinical indication: Pain; Hand; Left; Additional info: Ground level fall TECHNIQUE: Imaging protocol: Radiologic exam of the left hand. Views: 3 or more views. COMPARISON: CR XR FOREARM LT 2V 03/30/2025 10:28 PM FINDINGS: Bones/joints: No fracture. No dislocation. Degenerative changes of interphalangeal joints most pronounced in 1st interphalangeal joint. Soft tissues: Unremarkable. IMPRESSION: No acute findings identified.
--- NOTE | 2025-03-30 22:05 | XR_ITS ---
PROCEDURE INFORMATION: Exam: XR Right Hand Exam date and time: 03/30/2025 10:28 PM Age: 70 years old Clinical indication: Pain; Hand; Right; Additional info: Ground level fall TECHNIQUE: Imaging protocol: Radiologic exam of the right hand. Views: 3 or more views. COMPARISON: CR XR HAND RT MIN 3V 03/30/2025 10:28 PM FINDINGS: Bones/joints: No fracture. Normal alignment. Degenerative changes most pronounced in interphalangeal joints. Soft tissues: Unremarkable. IMPRESSION: No acute findings.
--- NOTE | 2025-03-30 22:05 | CT_ITS ---
PROCEDURE INFORMATION: Exam: CT Cervical Spine Without Contrast Exam date and time: 03/30/2025 10:26 PM Age: 70 years old Clinical indication: Injury or trauma; Fall; Additional info: Ground level fall TECHNIQUE: Imaging protocol: Computed tomography of the cervical spine without contrast. Radiation optimization: All CT scans at this facility use at least one of these dose optimization techniques: automated exposure control; mA and/or kV adjustment per patient size (includes targeted exams where dose is matched to clinical indication); or iterative reconstruction. COMPARISON: CT FACIAL BONES WO CON 03/30/2025 10:24 PM FINDINGS: Bones: No acute fracture. There is straightening of the spine. There is moderate to severe degenerative disc disease C5-C6 and C6-C7. There is significant left-sided facet arthropathy at C7-T1. [id number] facet arthropathy is noted otherwise. There is prominent bony foraminal stenosis on the left at C5-C6 and C6-C7 and to a lesser extent on the right at C5-C6. No significant disc bulge or herniation. No severe spinal canal stenosis. Lungs: Lung apices are normal. Thyroid: 7 mm coarse calcification within the left thyroid lobe. Subcentimeter hypodense nodule within the left thyroid lobe. Tiny calcifications with a the right thyroid lobe. No follow-up is necessary. Soft tissues: Unremarkable. IMPRESSION: No acute cervical spine fracture. COMMENTS: Consistent with the [employer]'s Incidental Findings Committee white paper (J Am Cristina Radiol 2015): In patients aged 35 years and older with an incidental thyroid nodule equal to or greater than 1.[address], MRI or extrathyroidal US, further evaluation with dedicated thyroid US is recommended for patients with normal life expectancy and without comorbidities. For smaller nodules without suspicious features, no further evaluation or follow up is recommended.
--- NOTE | 2025-03-30 22:05 | XR_ITS ---
PROCEDURE INFORMATION: Exam: XR Left Forearm Exam date and time: 03/30/2025 10:28 PM Age: 70 years old Clinical indication: Pain; Lower or forearm; Left; Additional info: Ground level fall TECHNIQUE: Imaging protocol: Radiologic exam of the left forearm. Views: 2 views. COMPARISON: CR XR FOREARM LT 2V 03/30/2025 10:28 PM FINDINGS: Bones/joints: Normal. Soft tissues: Normal. IMPRESSION: No acute findings.
--- NOTE | 2025-03-30 22:05 | CT_ITS ---
PROCEDURE INFORMATION: Exam: CT Maxillofacial Without Contrast Exam date and time: 03/30/2025 10:24 PM Age: 70 years old Clinical indication: Injury or trauma; Fall; Additional info: Ground level fall TECHNIQUE: Imaging protocol: Computed tomography of the face without contrast. Radiation optimization: All CT scans at this facility use at least one of these dose optimization techniques: automated exposure control; mA and/or kV adjustment per patient size (includes targeted exams where dose is matched to clinical indication); or iterative reconstruction. COMPARISON: CT FACIAL BONES WO CON 03/30/2025 10:24 PM FINDINGS: Paranasal sinuses: No air-fluid levels. Orbital cavities: Orbits are normal. Globes are unremarkable. Bones: No acute fracture. Soft tissues: Subcutaneous hematoma superolateral right periorbital region. IMPRESSION: 1. No acute fracture. 2. Subcutaneous hematoma superolateral right periorbital region.
--- NOTE | 2025-03-30 22:05 | HMH.EDGENADL ---
Discharge Plan Disposition Patient Disposition: Home, Self-Care Condition: Good Prescriptions Prescriptions: No Action metformin 1,000 mg tablet 1,000 mg PO DAILY aspirin [Adult Low Dose Aspirin] 81 mg tablet,delayed release (DR/EC) 81 mg PO DAILY furosemide 20 mg tablet 20 mg PO DAILY Qty: 90 3RF rosuvastatin 20 mg tablet PO Patient Comments: TAKE 1 TABLET BY MOUTH ONCE DAILY amlodipine [Norvasc] 5 mg tablet 5 mg PO DAILY Qty: 30 2RF albuterol sulfate 90 mcg/actuation HFA aerosol inhaler 1 inh inhalation QID PRN (Reason: shortness of breath or wheezing) Qty: 6.7 0RF cefdinir 300 mg capsule 300 mg PO BID Qty: 20 0RF benzonatate 100 mg capsule 100 mg PO BID PRN (Reason: cough) Qty: 20 0RF propranolol 60 mg capsule,extended release 24 hr See Rx Instructions .ROUTE .COMPLEX Qty: 90 2RF Dose Instruction: Take 1 capsule by mouth once daily Rx Instructions: Take 1 capsule by mouth once daily lisinopril 40 mg tablet 40 mg PO DAILY Qty: 90 3RF Referrals Follow up/Referrals: Nathan Perez MD [Primary Care Provider, Internal Medicine] - See instructions Activity Restrictions/Add. Instructions Additional Instructions/Restrictions: You can take Tylenol and Motrin at home for symptom control. Return to the emergency department for any acute symptoms. You can put cool compresses on your hematoma on your face, the swelling may continue to get worse over the next few days. Return to the emergency department if you have any severe headache, difficulties walking or any other acute concerns. Clinical Impressions Clinical Impression: Fall, Facial hematoma Print Language Print Language: Tamazight Discharge ED Provider: Carlene Deleon Adult HPI General Chief complaint: Fall Stated complaint: A/o 8-5 21:30 fell and hit R side of face Time Seen by Provider: 03/30/25 21:57 Mode of Arrival: Wheelchair Source of Information: Patient Description of Symptoms (Recalled from ER Triage Doc. by RN): pt presents to the Ed d/t complaints of fall on concrete hitting her head. pt states this happened around 2114. pt is alert and orineted pt has hematoma above right eye and road rash on right cheek. pt compalins of 5/10 head pain. denies blood thinners History of Present Illness HPI narrative: Patient is a 70-year-old female who is on daily aspirin who presents to the emergency department after a fall. Patient states that she slipped on the wet concrete fell landed and hit her head as well as needed on her bilateral wrists. Patient has pain above her right eye but is denying any vision changes. Patient denies any headache. Patient reports pain in her bilateral wrists but but denies any lower extremity pain. Patient denies any chest pain or shortness of breath. Patient states that she did not have any symptoms prior to the fall. Patient did not have any loss of consciousness. Related Data Home Medications ?Medication ?Instructions ?Recorded ?Confirmed aspirin 81 mg tablet,delayed 81 mg PO DAILY 04/16/19 11/01/24 release (Adult Low Dose Aspirin) metformin 1,000 mg tablet 1,000 mg PO DAILY 03/08/22 11/01/24 rosuvastatin 20 mg tablet mg PO 12/09/23 11/01/24 Previous Rx's ?Medication ?Instructions ?Recorded furosemide 20 mg tablet 20 mg PO DAILY #90 tabs 10/17/23 amlodipine 5 mg tablet (Norvasc) 5 mg PO DAILY #30 tabs 12/09/23 lisinopril 40 mg tablet 40 mg PO DAILY #90 tabs 10/08/24 propranolol 60 mg capsule,24 See Rx Instructions .Route 10/08/24 hr,extended release .COMPLEX #90 caps albuterol sulfate 90 mcg/actuation 1 inh inhalation QID PRN shortness 11/01/24 aerosol inhaler of breath or wheezing #6.7 grams benzonatate 100 mg capsule 100 mg PO BID PRN cough #20 caps 11/01/24 cefdinir 300 mg capsule 300 mg PO BID #20 caps 11/01/24 Allergies Allergy/AdvReac Type Severity Reaction Status Date / Time codeine (CODEINE) Allergy Unknown Verified 11/01/24 12:08 Iodinated Contrast Media Allergy Unknown Verified 11/01/24 12:08 (IODINATED CONTRAST MEDIA - ORAL AND) Penicillins (PENICILLINS) Allergy Unknown Verified 11/01/24 12:08 shellfish derived (From Allergy Unknown . Verified 11/01/24 12:08 SHELLFISH (FOOD/DRUG)) Sulfa (Sulfonamide Allergy Unknown Verified 11/01/24 12:08 Antibiotics) (SULFA (SULFONAMIDE ANTIBIOTICS)) [facility] Disclaimer: The information contained in this section may have been updated after the patient was seen, as this information can be updated by other users. Medical History Close exposure to COVID-19 virus Tetanus toxoid vaccination administered at current visit Acute viral syndrome Viral upper respiratory illness Allergic rhinitis Annual physical exam Malignant essential hypertension SUAREZ (dyspnea on exertion) Pulmonary hypertension Hyperlipidemia associated with type 2 diabetes mellitus Diabetes mellitus Edema of both lower extremities SOB (shortness of breath) on exertion Anxiety HTN (hypertension) Surgical History No significant past surgical history Family History Other No significant family history Social History Smoking Status: Never smoker alcohol intake: never substance use type: denies use current occupational status: other Travel in the last 8 weeks?: Inside the [place] Have you lived/traveled outside US in past 30 days?: No Contact w/someone who lives/traveled outside US past 30 days?: No Exposure to someone with infectious disease in past 14 days?: No Do you have a fever (greater than 100.4 F or 38 C)?: No Have you tested positive for COVID-19?: No Exposed to someone with COVID-19 in past 14 days?: No Do you have a sore throat?: No Do you have a cough?: No Do you have any weakness?: No Do you have any diarrhea?: No Are you experiencing any unusual bleeding?: No Do you have any muscle aches/pain?: No Do you have any abdominal pain?: No Are you experiencing loss of taste or smell?: No Other Medical History Have you received the Pneumonia Vaccine: Yes ROS Obtained: Yes All systems reviewed & no additional complaints except as documented and Yes Systems reviewed as appropriate & no additional complaints except as documented Physical Exam General General appearance: alert and in no apparent distress Head Head exam: normocephalic, normal inspection and other (Large hematoma above the right eye) Eye Eye exam: Present normal appearance, PERRL, EOMI and other; Absent scleral icterus ENT ENT exam: Present normal exam and normal external ear exam Neck Neck exam: Present normal inspection, full ROM and other (No midline cervical spine tenderness) Chest Chest inspection: Present normal inspection and symmetric chest wall rise Respiratory Respiratory exam: Present normal lung sounds bilaterally; Absent respiratory distress or wheezes Cardiovascular Cardiovascular exam: Present regular rate, normal rhythm and normal heart sounds Abdominal Exam Abdominal exam: Present soft and distention; Absent tenderness, guarding or rebound Extremities Exam Extremities exam: Present normal inspection, full ROM and other (Bilateral wrist and hand tenderness, no forearm tenderness, full range of motion of the bilateral upper extremities, full range of motion of the bilateral lower extremities without tenderness) Back Exam Back exam: Present normal inspection and full ROM Neurological Exam Neurological exam: Present alert and oriented X3 Psychiatric Psychiatric exam: Present normal affect and normal mood Skin Skin exam: Present warm and dry Medical Decision Making Medical Records Screening: Per USPSTF and CDC recommendations, given the prevalence of disease in our region, it is our hospital?s policy to screen for HIV and viral Hepatitis for all patients aged 18 and over and those with ongoing risk factors. Juan Carlos Inquiry Pt receiving controlled substance: No Vital Signs: 03/30/25 22:01 03/30/25 22:44 03/30/25 23:24 Temperature 98.6 F Temperature Source Oral Pulse Rate 75 Pulse Rate [Right Radial] 82 Respiratory Rate 16 16 Blood Pressure 160/73 H Blood Pressure [Right Arm] 196/95 H Blood Pressure Mean [Right Arm] 128 Blood Pressure Source Blood Pressure Position Blood Pressure Position [Right Arm] Supine 02 Sat by Pulse Oximetry 98 98 97 Oxygen Delivery Method Room Air Room Air Room Air 03/30/25 23:40 Temperature 98.6 F Temperature Source Oral Pulse Rate 69 Pulse Rate [Right Radial] Respiratory Rate 17 Blood Pressure 167/73 H Blood Pressure [Right Arm] Blood Pressure Mean [Right Arm] Blood Pressure Source Automatic Cuff Blood Pressure Position Sitting Blood Pressure Position [Right Arm] 02 Sat by Pulse Oximetry Oxygen Delivery Method Room Air Lab Data Lab results reviewed: Yes I reviewed the patient's lab results. Lab Results 03/30/25 22:08: WBC 8.1, RBC 4.42, Hgb 13.5, Hct 40.8, MCV 92.3, MCH 30.5, MCHC 33.1, RDW 12.8, Plt Count 334, MPV 9.9, Neut % (Auto) 53.9, Lymph % (Auto) 32.3, Toole % (Auto) 9.0, Eos % (Auto) 3.9, Baso % (Auto) 0.7, Neut # (Auto) 4.4, Lymph # (Auto) 2.6, Toole # (Auto) 0.7, Eos # (Auto) 0.3, Baso # (Auto) 0.1, PT 10.3, INR 0.92, Sodium 134 L, Potassium 4.2, Chloride 101, Carbon Dioxide 26, Anion Gap 11.2, BUN 19 H, Creatinine 0.70, Estimated Creat Clear 66, Estimated GFR 83, Est GFR ( Amer) 101, Glucose 359 H, Calcium 9.7, Total Bilirubin 0.4, AST 34, ALT 29, Alkaline Phosphatase 91, Total Protein 8.1, Albumin 3.8, Globulin 4.3 H, Albumin/Globulin Ratio 0.9 L 03/30/25 22:08 03/30/25 22:08 Orders (Tests/Meds): ED MEDICATIONS Discontinued Medications Generic Name Dose Route Start Last Admin Trade Name Jorjeq PRN Reason Stop Dose Admin Acetaminophen 1,000 mg 03/30/25 22:09 03/30/25 22:15 Acetaminophen 500mg Tab PO 03/30/25 22:10 1,000 mg ONCE ONE Administration ORDERS Category Date Time Status CT cervical spine wo con Stat Cat Scan 03/30/25 22:[address] facial bones wo con Stat Cat Scan 03/30/25 22:[address] head/brain wo con Stat Cat Scan 03/30/25 22:05 Completed Forearm XR left 2 views [XR forearm LT 2V] Stat Exams 03/30/25 22:05 Completed Forearm XR right 2 views [XR forearm RT 2V] Stat Exams 03/30/25 22:08 Completed Hand XR left minimum 3 views [XR hand LT min 3V] Stat Exams 03/30/25 22:05 Completed Hand XR right minimum 3 views [XR hand RT min 3V] Stat Exams 03/30/25 22:05 Completed Wrist XR left minimum 3 views [XR wrist LT min 3V] Stat Exams 03/30/25 22:05 Completed Wrist XR right minimum 3 views [XR wrist RT min 3V] Exams 03/30/25 22:08 Completed Stat CBC w/Auto Diff [Complete Blood Count Auto Diff] Stat Lab 03/30/25 22:08 Completed CMP [Comprehensive Metabolic Panel] Stat Lab 03/30/25 22:08 Completed PT INR [Prothrombin Time INR] Stat Lab 03/30/25 22:08 Completed Medical Decision Narrative: Patient is a 70-year-old female with a history of coronary artery disease on aspirin who presented to the emergency department after mechanical fall. On arrival, patient was hemodynamically stable with unremarkable vital signs. On exam, patient had bilateral wrist tenderness and hand tenderness but no forearm tenderness. Patient had a large hematoma above the right eye. Differential includes but not limited to: Fracture, dislocation, sprain, strain, intracranial pathology, spinal pathology, facial fracture, amongst others. Patient's labs were reviewed and interpreted by myself, CBC showed no leukocytosis, hemoglobin was stable. CMP was unremarkable. INR was mildly elevated at 0.92. Patient's glucose was elevated at 359. Patient's imaging was reviewed and interpreted by myself, x-rays of the bilateral hands wrists and forearms showed no acute fractures. Patient CT head CT cervical spine and CT facial bones were reviewed and interpreted by myself and showed no acute injuries except for a soft tissue hematoma above the right eye. Patient had no lacerations that needed repaired. Patient was given Tylenol for symptom control and patient was able to ambulate in the emergency department without difficulties. Patient was given symptomatic management patient was given return precautions and patient was otherwise discharged home in stable condition. Critical Care Critical Care Time Critical Care Time: No
--- NOTE | 2025-03-30 22:08 | XR_ITS ---
PROCEDURE INFORMATION: Exam: XR Right Forearm Exam date and time: 03/30/2025 10:28 PM Age: 70 years old Clinical indication: Pain; Lower or forearm; Right; Additional info: Ground level fall TECHNIQUE: Imaging protocol: Radiologic exam of the right forearm. Views: 2 views. COMPARISON: CR XR FOREARM RT 2V 03/30/2025 10:28 PM FINDINGS: Bones/joints: Normal. Soft tissues: Normal. IMPRESSION: No acute findings.
--- NOTE | 2025-03-30 22:08 | XR_ITS ---
PROCEDURE INFORMATION: Exam: XR Right Wrist Exam date and time: 03/30/2025 10:28 PM Age: 70 years old Clinical indication: Pain; Wrist; Right; Additional info: Ground level fall TECHNIQUE: Imaging protocol: Radiologic exam of the right wrist. Views: 3 or more views. COMPARISON: CR XR FOREARM RT 2V 03/30/2025 10:28 PM FINDINGS: Bones/joints: Normal. Soft tissues: Normal. IMPRESSION: No acute findings.
[2025-03-30] MEDS: ACETAMINOPHEN 500MG TAB 1000 MG PO (22:15)
[2025-03-30 22:18] LABS: Hematocrit 40.8 % (37.0-47.0); Hemoglobin 13.5 g/dL (12.2-16.2); Immature Granulocytes % 0.2 %; Mean Corpuscular HGB Conc 33.1 g/dL (31.8-35.4); Mean Corpuscular Hemoglobin 30.5 pg (27.0-31.2); Mean Corpuscular Volume 92.3 fl (81-99); Nucleated Red Blood Cells % 0 %; Platelet Count 334 K/mm3 (142-424); Red Blood Count 4.42 M/mm3 (4.20-5.40); Red Cell Distribution Width-SD 43.7 fL; White Blood Count 8.1 K/mm3 (4.8-10.8)
[2025-03-30 22:24] LABS: Albumin Level 3.8 g/dl (3.5-5.0); Chloride 101 mmol/L (98-107); Potassium 4.2 mmoL/L (3.5-5.1); Sodium 134 mmol/L (136-145)
[2025-03-30 22:27] LABS: Alanine Aminotransferase 29 U/L (12-78); Albumin/Globulin Ratio 0.9 (1.1-1.8); Alkaline Phosphatase 91 U/L (38-126); Anion Gap 11.2 mEq/L (5-15); Aspartate Amino Transferase 34 U/L (14-36); Bilirubin,Total 0.4 mg/dl (0.2-1.3); Blood Urea Nitrogen 19 mg/dl (7-17); Calcium 9.7 mg/dl (8.4-10.2); Carbon Dioxide 26 mmol/L (22.0-30.0); Creatinine Clearance Estimated 66 mL/min (50-200); Creatinine,Serum 0.70 mg/dl (0.52-1.04); Estimated Glomerular Filt Rate 83 ml/min (>60); GFR (African American) 101 ML/MIN (>60); Globulin 4.3 g/dL (1.3-3.2); Glucose 359 mg/dl (74-100); INR 0.92 (0.9-1.1); Prothrombin Time 10.3 seconds (10.1-12.5); Total Protein,Serum 8.1 g/dl (6.3-8.2)
[2025-03-30 22:44] VITALS: BP 160/73; PULSE 75; RESP 16; O2SAT 98
[2025-03-30 23:24] VITALS: O2SAT 97
[2025-03-30 23:40] VITALS: BP 167/73; PULSE 69; RESP 17; TEMP 37; O2SAT 95
== END 2025-03-30 23:42 | disposition home or self-care (01) ==
PROVIDERS: Emergency Provider Student in an Organized Health Care Education/Training Program; PCP Internal Medicine Adolescent Medicine
DX: S00.83XA Contusion of other part of head, initial encounter (principal); M25.531 Pain in right wrist; M25.532 Pain in left wrist; E11.69 Type 2 diabetes mellitus with other specified complication; E78.5 Hyperlipidemia, unspecified; I27.20 Pulmonary hypertension, unspecified; I25.10 Atherosclerotic heart disease of native coronary artery without angina pectoris; W18.49XA Other slipping, tripping and stumbling without falling, initial encounter
CPT/HCPCS: 70450; 70486; 72125; 73090; 73110; 73130; 80053; 85025; 85610; 99285

== ENCOUNTER 2025-05-13 13:59 | Outpatient (CLI) | payer MEDICARE, OTHER, SELFPAY ==
--- OUTSIDE RECORDS SUMMARY | 2025-05-13 14:07 | XMS_ITS | Clinical Summary ---
Author Organization [facility] ystem Address [address] [place] [address] Care Team Providers Care Database Marketing Manager Name Role Phone Unavailable Primary Care Provider [...] C SCREENING 10/03/2015 COVID-19 Vaccine ( season) 2025 INFLUENZA VACCINE 05/26/2025
--- OUTSIDE RECORDS SUMMARY | 2025-05-13 14:07 | XMS_ITS | Clinical Summary ---
Author Organization Healthcare Address [address] [place] [address] Care Team Providers Care Honing Machine Operator Name Role Phone Unavailable Primary Care Provider [...]
== END 2025-05-13 23:59 | disposition home or self-care (01) ==
LOC: DIETICIAN 13:59
PROVIDERS: PCP Internal Medicine Adolescent Medicine; Visit Provider Internal Medicine Adolescent Medicine
DX: E11.69 Type 2 diabetes mellitus with other specified complication (principal)
CPT/HCPCS: 97802

== ENCOUNTER 2025-05-19 13:53 | Outpatient (RCR) | payer MEDICARE, OTHER, SELFPAY ==
--- NOTE | 2025-05-20 09:55 | HMH.PTOPEV ---
PT Evaluation Rehab PT Outpatient Evaluation Start: 05/19/25 14:00 Freq: Status: Active Protocol: Document 05/19/25 14:00 HEIDY (Rec: 05/19/25 14:54 HEIDY [id number]) E-signed By Brenda Watson, PT Outpatient Therapy Subjective History Subjective History Pt is a 70 y/o female referred to PT for frequent falls . Pt reports she fell on 03/30/25 hitting the right side of her head. Pt states she was leaning forward and moving a small bicycle out of the way and the handles moved quickly and she was unable to catch herself. Pt reports she had imaging of her head after the fall, denies known fractures or concussions. Pt denies other falls this year but does states she has fallen several times throughout her lifetime. Pt states her balance feels altered mostly with quick movements and walking on unlevel ground. Pt reports she is an active person and has 3 young grandchildren which she helps take care of. Medical History: Hypertension, Type II Diabetes, Hyperlipidemia New diagnosis of No cancer in past 12 months? Hip/Knee Eval MMT bilateral Hip Flexion Strength 4+ Good+ Grade Hip Abduction 4 Good Strength Grade Hip Adduction 4 Good Strength Grade Hip Extension 4 Good Strength Grade Knee Extension 5 Normal Strength Grade Knee Flexion 5 Normal Strength Grade Balance Eval Subjective Hx of Complaint Comment altered balance with quick movements & walking on unlevel ground Chief Complaint vertigo No Did you feel dizzy, No unsteady or faint? Hx of Falls Hx Falls Yes Number in last 6 1 months Gait/Posture Asssessment General Gait Wide Based Gait,Decrease Stride Lngth (R),Decrease Observation Stride Lngth (L) Assistive Devices None / NA Timed Up and Go Test 3. Is the Timed Up yes and Go Test result < 12 seconds? [place]omberg Feet Together/Eyes pass open/Stable Surface Feet Together/Eyes pass Closed/Stable Surface Feet Together/Eyes fail open/Unstable Surface Feet Together/Eyes fail Closed/Unstable Surface Dynamic Gait Index Test Protocol Gait Level Surface Normal Query Text: Instructions: Walk at your normal speed from here to the next lala (20'). Grading: Lala the lowest category that applies. Change in Gait Speed Mild Impairment Query Text: Instructions: Begin walking at your normal pace (for 5') , when I tell you go , walk as fast as you can (for 5'). When I tell you slow , walk as slowly as you can ( for 5'). Grading: Lala the lowest category that applies. Gait with Horizontal Mild Impairment Head Turns Query Text: Instructions: Begin walking at your normal pace. When I tell you to look right , keep walking straight, but turn you head to the right. Keep looking to the right unit I tell you look left , then keep walking straight and turn your head to the left. Keep your head to the left until I tell you look straight , then keep walking straight, but return you head to the center. Grading: Lala the lowest category that applies. Gait with Vertical Normal Head Turns Query Text: Instructions: Begin walking at your normal pace. When I tell you to look up , keep walking staight, but tip your head up. Keep looking up until I tell you to look down , then keep walking straight and tip your head down. Keep your head down until I tell you look straight , then keep walking straight, but return your head to the center. Grading: Lala the lowest category that applies. Gait and Pivot Turn Normal Query Text: Instructions: Begin walking at your normal pace. When I tell you turn and stop , turn as quickly as you can to face the opposite direction and stop. Grading: Lala the lowest category that applies. Step Over Obstacle Mild Impairment Query Text: Instructions: Begin walking at your normal speed. When you come to the shoebox, step over it, not around it and keep walking. Grading: Lala the lowest category that applies. Step Around Normal Obstacles Query Text: Instructions: Begin walking at normal speed. When you come to the first cone (about 6' away) , walk around the right side of it. When you come to the second cone (6' past first cone), walk around it to the left. Grading: Lala the lowest category that applies. Steps Mild Impairment Query Text: Instructions: Walk up these stairs as you would at home. At the top, turn around and walk down . Grading: Lala the lowest category that applies. Scoring Dynamic Gait Index 20 Score Miscellaneous Dx PT Eval Objective Objective 5x sit to stand: 21 TU without AD Outpatient Therapy Assessment Impairments Problems/ Impaired Transfers,Impaired Gait Pattern,Impaired Impairmments Stepping on Uneven Surface,Impaired Recreational Activities,Impaired Balance,Impaired DGI Score,Impaired Self Care/Self Management Prognosis Rehab Potential Good Clinical Impression Consistent with Yes Diagnosis PT Patient Goals PT Patient Goals PT Short Term 2-3 weeks: Patient Goals 1. Verbalize compliance with HEP to assist with progress 2. Improve 5x sit to stand score to 15 or less to decrease fall risk 3. Perform FT EC on firm surface 30 without LOB to decrease fall risk PT Hospital Coder Patient 4-6 weeks: Goals 1. Improve 5x sit to stand score to 12 or less to decrease fall risk 2. Improve DGI score to 24/24 to decrease fall risk 3. Improve hip strength to 4+-5/5 grossly to assist with function 4. Perform FT EC unstable surface 30 without LOB to decrease fall risk Outpatient Therapy Plan of Care Treatment Plan May Include Therapeutic Exercise Yes Including Home Exercise Program Manual Therapy Yes Techniques Neuromuscular Re- Yes education Therapeutic Yes Activities to Return to Previous Functional/Work Level Gait Training Yes ADL/Self Care Yes Education Group Therapy for Yes Medicare Eval/Re-Eval Yes Frequency Times per week 2 Duration Number of Weeks 4-6 Addendums This patient is a No candidate for social or vocational rehab ? Patient/Guardian Yes verbally acknowledges understanding of treatment program and consents to further treatment? Patient/Guardian Yes verbally acknowledges understanding of diagnosis, prognosis and goals for treatment? Eval Complexity PT Charges 48936 - Low Complexity Shoulder/Elbow Eval Shoulder Objective Measurements Elbow Objective Measurements PHYSICIAN CERTIFICATION: I certify the specified therapy services for Jannet Narvaez are required, authorized, and reviewed every 30 days.
== END 2025-05-19 23:59 | disposition home or self-care (01) ==
LOC: PT 13:53
PROVIDERS: Visit Provider Internal Medicine Adolescent Medicine
DX: R29.6 Repeated falls (principal)
CPT/HCPCS: 97161

== ENCOUNTER 2025-06-17 14:00 | Outpatient (RCR) | payer MEDICARE, OTHER, SELFPAY ==
--- NOTE | 2025-06-17 16:03 | [facility].RHREAS ---
Rehab Reassessment Rehab OP Re-assessment Start: 05/27/25 15:15 Freq: Status: Active Protocol: Document 06/17/25 14:15 ANUSHATA (Rec: 06/17/25 16:03 HEIDY [id number]) E-signed By Brenda Watson PT Dynamic Gait Index Test Protocol Gait Level Surface Normal Query Text: Instructions: Walk at your normal speed from here to the next lala (20'). Grading: Lala the lowest category that applies. Change in Gait Speed Normal Query Text: Instructions: Begin walking at your normal pace (for 5') , when I tell you go , walk as fast as you can (for 5'). When I tell you slow , walk as slowly as you can ( for 5'). Grading: Lala the lowest category that applies. Gait with Horizontal Normal Head Turns Query Text: Instructions: Begin walking at your normal pace. When I tell you to look right , keep walking straight, but turn you head to the right. Keep looking to the right unit I tell you look left , then keep walking straight and turn your head to the left. Keep your head to the left until I tell you look straight , then keep walking straight, but return you head to the center. Grading: Lala the lowest category that applies. Gait with Vertical Normal Head Turns Query Text: Instructions: Begin walking at your normal pace. When I tell you to look up , keep walking staight, but tip your head up. Keep looking up until I tell you to look down , then keep walking straight and tip your head down. Keep your head down until I tell you look straight , then keep walking straight, but return your head to the center. Grading: Lala the lowest category that applies. Gait and Pivot Turn Normal Query Text: Instructions: Begin walking at your normal pace. When I tell you turn and stop , turn as quickly as you can to face the opposite direction and stop. Grading: Lala the lowest category that applies. Step Over Obstacle Normal Query Text: Instructions: Begin walking at your normal speed. When you come to the shoebox, step over it, not around it and keep walking. Grading: Lala the lowest category that applies. Step Around Normal Obstacles Query Text: Instructions: Begin walking at normal speed. When you come to the first cone (about 6' away) , walk around the right side of it. When you come to the second cone (6' past first cone), walk around it to the left. Grading: Lala the lowest category that applies. Steps Normal Query Text: Instructions: Walk up these stairs as you would at home. At the top, turn around and walk down . Grading: Lala the lowest category that applies. Scoring Dynamic Gait Index 24 Score Rehab Re-assessment Subjective Subjective Pt reports she feels 75% improved since starting PT. Pt reports she feels that her strength and balance have improved. Pt denies difficulty or unsteadiness with any functional activity. Pt denies falls. Pt reports compliance with HEP with good tolerance. Objective Objective Notes 5x sit to stand: 10 Balance: FT EC firm surface >30 without LOB, FT EC unstable surface >30 without LOB Hip strength: 4+/5 grossly Assessment Assessment Notes Pt has attended 7 PT treatment sessions consisting of aerobic exercise, LE strengthening, and balance/ proprioception with good tolerance. Pt demonstrated improved 5x sit to stand score, DGI, balance, and strength this date compared to the initial evaluation. Overall, the pt has met all PT goals and is appropriate to discharge to independent [facility] at this time. PT Patient Goals PT Short Term 2-3 weeks: Patient Goals 1. Verbalize compliance with HEP to assist with progress -MET 2. Improve 5x sit to stand score to 15 or less to decrease fall risk -MET 3. Perform FT EC on firm surface 30 without LOB to decrease fall risk -MET PT [facility] Work[facility] Patient 4-6 weeks: Goals 1. Improve 5x sit to stand score to 12 or less to decrease fall risk -MET 2. Improve DGI score to 24/24 to decrease fall risk - MET 3. Improve hip strength to 4+-5/5 grossly to assist with function -MET 4. Perform FT EC unstable surface 30 without LOB to decrease fall risk -MET Plan Plan Discharge to independent [facility] Eval/Re-Eval Yes Time and Billing Re-Eval Time 11 Re-Eval Billing 0 Units Charge for PT No reassessment? Charge for OT No reassessment? PHYSICIAN CERTIFICATION: I certify the specified therapy services for Jannet Narvaez are required, authorized, and reviewed every 30 days.
== END 2025-06-17 23:59 | disposition home or self-care (01) ==
LOC: PT 14:00
PROVIDERS: Visit Provider Internal Medicine Adolescent Medicine
DX: R29.6 Repeated falls (principal)
CPT/HCPCS: 97110; 97112

== ENCOUNTER 2025-07-07 14:09 | Outpatient (CLI) | payer MEDICARE, OTHER, SELFPAY ==
[2025-07-07 20:59] LABS: Coronavirus 19, PCR Not Detected (NotDetected); Influenza A, PCR Not Detected (NotDetected); Influenza B, PCR Not Detected (NotDetected)
== END 2025-07-07 23:59 ==
LOC: LAB.DROPOF 07-12 08:57
PROVIDERS: PCP Internal Medicine Adolescent Medicine; Visit Provider Nurse Practitioner
DX: J06.9 Acute upper respiratory infection, unspecified (principal); J02.9 Acute pharyngitis, unspecified
CPT/HCPCS: 87631